=== PATIENT | female | born 1990 | race Caucasian/White ===

== ENCOUNTER 2018-04-20 08:02 | Inpatient (IN) ==
[2018-04-20] MEDS ORDERED: LACTATED RINGERS 1,000 ML IV ONE (08:54)
[2018-04-20] MEDS ORDERED: OXYTOCIN/LR 20 UNIT/1,000 ML BAG IV SCH (09:00)
[2018-04-20] MEDS ORDERED: LACTATED RINGERS 1,000 ML IV SCH (09:00)
[2018-04-20] MEDS ORDERED: BETAMETH SODIUM PHOS/ACETATE 30 MG/5 ML VIAL IM ONE (09:01)
[2018-04-20] MEDS ORDERED: CLINDAMYCIN INJ 900 MG in PREMIX 1 EACH IV SCH (09:30)
[2018-04-20 10:00] LABS: Basophils % 0.3 % (0.0-0.8); Eosinophils % 0.4 % (0.00-10.9); Hemoglobin 8.9 GM/DL (12.0-16.0); Immature Granulocytes % 0.5 %; Immature Granulocytes Absolute 0.04 #; Lymphocytes # 1.5 10*3/uL (1.4-4.0); Lymphocytes % 20.3 % (21.3-54.2); Mean Corpuscular HGB Conc 31.8 GM/DL (32-36); Mean Corpuscular Hemoglobin 24 PG (27-34); Mean Corpuscular Volume 74.7 FL (87-102); Mean Platelet Volume 10.5 FL (9.6-12.0); Monocytes # 0.4 10*3/uL (0.11-0.8); Neutrophils # 5.5 10*3/uL (1.4-7.4); Neutrophils % 73.5 % (38.7-73.9); Platelet Count 312 T/CUMM (130-400); Red Blood Count 3.75 MC/CUMM (3.8-5.5); Red Cell Distribution Width 15.1 % (9.3-17.3); White Blood Count 7.5 T/CUMM (4-12)
[2018-04-20] MEDS: ONDANSETRON 4 MG/2 ML VIAL IV PRN ×3 (11:31→22:45)
[2018-04-20] MEDS ORDERED: CITRIC ACID/SODIUM CITRATE 30 ML UDCUP PO ONE (12:13)
[2018-04-20] MEDS ORDERED: FAMOTIDINE 20 MG/2 ML VIAL IV ONE (12:13)
[2018-04-20] MEDS ORDERED: diphenhydrAMINE 50 MG/1 ML VIAL IV PRN ×2 (12:13)
[2018-04-20] MEDS ORDERED: ePHEDrine 50 MG/ML AMP IV PRN (12:13)
[2018-04-20] MEDS ORDERED: fentaNYL 2 MCG/ROPIV 0.2% EPID 150 ML EPIDURAL SCH (12:30)
[2018-04-20 14:48] LABS: Apearance,Urine CLEAR (Clear); Bilirubin,Urine Negative (Negative); Blood, Urine Negative (Negative); Glucose,Urine (UA) Negative (Negative); Ketones,Urine 20 mg/dL (Negative); Mucus,Urine Occasional /LPF (Occasional); Nitrite,Urine Negative (Negative); Protein,Urine Negative; RBC,Urine 4 /HPF (0-4); Urine Color Straw (Yellow); Urine Specific Gravity 1.006 (1.001-1.035); Urine Urobilinogen < 2.0 EU/DL (0.2-1.0); WBC,Urine 47 /HPF (0-6)
[2018-04-20] MEDS ORDERED: MEPERIDINE 50 MG/1 ML VIAL ONE (14:49)
[2018-04-20] MEDS ORDERED: LIDOCAINE 1% 50 ML VIAL ONE (14:49)
[2018-04-20] MEDS ORDERED: HYDROCORTISONE 2.5% RECTAL CREAM 30 GM TUBE TOP PRN (15:05)
[2018-04-20] MEDS ORDERED: WITCH HAZEL PADS 100/JAR TOP PRN (15:05)
[2018-04-20] MEDS ORDERED: ONDANSETRON 4 MG/2 ML VIAL IV PRN (15:05)
[2018-04-20] MEDS ORDERED: RHO(D) IMMUNE GLOBULIN 300 MCG SYRINGE IM ONE (15:05)
[2018-04-20] MEDS ORDERED: LANOLIN 50% CREAM 0.3 OZ TUBE TOP PRN (15:05)
[2018-04-20] MEDS ORDERED: BENZOCAINE 20%/MENTHOL 0.5% SPRAY 56 GM CAN TOP PRN (15:05)
[2018-04-20] MEDS ORDERED: DIPH/TET/ACEL PERT BOOSTER VACCINE 0.5 ML VIAL IM ONE (15:05)
[2018-04-20] MEDS ORDERED: BISACODYL 10 MG SUPP RECTAL PRN (15:05)
[2018-04-20] MEDS ORDERED: ACETAMINOPHEN 325 MG TABLET PO PRN (15:05)
[2018-04-20] MEDS ORDERED: OXYTOCIN/LR 20 UNIT/1,000 ML BAG IV ONE (15:05)
[2018-04-20] MEDS ORDERED: oxyCODONE/ACETAMINOPHEN 5-325 MG TABLET PO PRN (15:05)
[2018-04-20] MEDS ORDERED: MEASLES/MUMPS/RUBELLA VACCINE 0.5 ML VIAL SUBCUT ONE (15:05)
[2018-04-20] MEDS: IBUPROFEN 800 MG TABLET PO PRN (17:40)
[2018-04-20] MEDS: oxyCODONE/ACETAMINOPHEN 5-325 MG TABLET PO PRN (17:42)
[2018-04-20] MEDS ORDERED: CARISOPRODOL 350 MG TABLET PO PRN (18:05)
[2018-04-20] MEDS: DOCUSATE SODIUM 100 MG CAPSULE PO SCH (20:42)
[2018-04-20] MEDS ORDERED: NITROFURANTOIN MACRO/MONO 100 MG CAPSULE PO SCH (21:00)
[2018-04-21] MEDS: oxyCODONE/ACETAMINOPHEN 5-325 MG TABLET PO PRN ×4 (00:04→21:35)
[2018-04-21 05:06] LABS: Basophils % 0.1 % (0.0-0.8); Hematocrit 26.6 VOL% (35.7-47.0); Hemoglobin 8.1 GM/DL (12.0-16.0); Immature Granulocytes % 0.7 %; Immature Granulocytes Absolute 0.09 #; Lymphocytes # 1.5 10*3/uL (1.4-4.0); Mean Corpuscular HGB Conc 30.5 GM/DL (32-36); Mean Corpuscular Hemoglobin 23 PG (27-34); Mean Corpuscular Volume 76.4 FL (87-102); Mean Platelet Volume 11.2 FL (9.6-12.0); Monocytes % 7.8 % (1.7-12.7); Neutrophils # 10.7 10*3/uL (1.4-7.4); Neutrophils % 80.4 % (38.7-73.9); Platelet Count 317 T/CUMM (130-400); Red Blood Count 3.48 MC/CUMM (3.8-5.5); Red Cell Distribution Width 15.1 % (9.3-17.3); White Blood Count 13.3 T/CUMM (4-12)
[2018-04-21] MEDS: IBUPROFEN 800 MG TABLET PO PRN ×3 (07:31→21:34)
[2018-04-21] MEDS: ONDANSETRON 4 MG/2 ML VIAL IV PRN (08:40)
[2018-04-21] MEDS: DOCUSATE SODIUM 100 MG CAPSULE PO SCH ×2 (08:44→20:09)
[2018-04-21] MEDS: FERROUS SULFATE 325 MG TABLET PO SCH ×2 (08:48→20:09)
[2018-04-21] MEDS ORDERED: [UNRECOGNIZED DRUG - REMARK] PO SCH (09:00)
[2018-04-21] MEDS: GENTAMICIN INJ 120 MG in PREMIX 1 EACH IV SCH ×2 (15:28→23:00)
[2018-04-21] MEDS: ONDANSETRON 4 MG TABLET PO PRN (21:34)
[2018-04-22] MEDS: ONDANSETRON 4 MG TABLET PO PRN (03:51)
[2018-04-22] MEDS: IBUPROFEN 800 MG TABLET PO PRN (03:51)
[2018-04-22] MEDS: oxyCODONE/ACETAMINOPHEN 5-325 MG TABLET PO PRN ×2 (03:52→10:18)
[2018-04-22] MEDS: GENTAMICIN INJ 120 MG in PREMIX 1 EACH IV SCH (06:37)
[2018-04-22 07:34] VITALS: BP 93/52
[2018-04-22] MEDS: FERROUS SULFATE 325 MG TABLET PO SCH (08:54)
[2018-04-22] MEDS: DOCUSATE SODIUM 100 MG CAPSULE PO SCH (08:55)
== END 2018-04-22 12:05 | disposition home or self-care (01) | DRG 560 ==
LOC: N.LDOUT 08:02 → N.LD 08:04 → N.OB 17:00
PROVIDERS: ADMIT Specialist; ATTEND Specialist

== ENCOUNTER 2021-07-17 12:49 | Inpatient (IN) ==
[2021-07-17] MEDS ORDERED: ONDANSETRON 4 MG/2 ML VIAL IV STA (13:26)
[2021-07-17] MEDS ORDERED: SODIUM CHLORIDE 0.9% 1,000 ML IV STA (13:26)
[2021-07-17 14:00] LABS: Basophils % 0.3 % (0.0-0.8); Eosinophils % 0.5 % (0.00-10.9); Hematocrit 44.5 VOL% (35.7-47.0); Hemoglobin 14.7 GM/DL (12.0-16.0); Immature Granulocytes % 0.3 %; Immature Granulocytes Absolute 0.02 #; Lymphocytes # 0.6 10*3/uL (1.4-4.0); Lymphocytes % 8.5 % (21.3-54.2); Mean Corpuscular Volume 84.8 FL (87-102); Mean Platelet Volume 10.9 FL (9.6-12.0); Monocytes % 5.6 % (1.7-12.7); Neutrophils % 84.8 % (38.7-73.9); Platelet Count 219 T/CUMM (130-400); Red Blood Count 5.25 MC/CUMM (3.8-5.5); Red Cell Distribution Width 13.1 % (9.3-17.3); White Blood Count 7.5 T/CUMM (4-12)
[2021-07-17 14:37] LABS: Albumin 4.1 G/DL (3.4-5.0); Bilirubin,Total 5.1 MG/DL (0.20-1.00); Calcium 8.9 MG/DL (8.5-10.1); Potassium 3.4 MMOL/L (3.5-5.1)
[2021-07-17 15:16] LABS: Bilirubin,Urine Small mg/dL (Negative); Blood, Urine Negative (Negative); Glucose,Urine (UA) Negative (Negative); Ketones,Urine Negative (Negative); Mucus,Urine Occasional /LPF (Occasional); Nitrite,Urine Negative (Negative); Protein,Urine 100 MG/DL; RBC,Urine 1 /HPF (0-4); Squamous Epithelial Cell,Urine Occasional /HPF (0-10); Urine Appearance CLEAR (Clear); Urine Color Amber (Yellow); Urine Specific Gravity 1.027 (1.001-1.035)
[2021-07-17 15:27] LABS: Barbiturates Screen,Urine Negative (Negative); Benzodiazepines Screen,Urine Positive (Negative); Cannabinoid Screen,Urine Positive (Negative); Opiate Screen,Urine Negative (Negative); Phencyclidine Screen,Urine Negative (Negative)
[2021-07-17] MEDS ORDERED: hydrALAZINE 20 MG/1 ML VIAL IV PRN (17:38)
[2021-07-17] MEDS ORDERED: DEXTROSE 50% 25 GM/50 ML VIAL IV PRN (17:38)
[2021-07-17] MEDS ORDERED: BISACODYL 5 MG TABLET PO PRN (17:38)
[2021-07-17] MEDS ORDERED: GLUCAGON 1 MG VIAL IM PRN (17:38)
[2021-07-17] MEDS ORDERED: IBUPROFEN 600 MG TABLET PO PRN (17:41)
[2021-07-17 17:54] LABS: Hepatitis B Core IgM Quant 0.09 Index; Hepatitis B Surface Ag Quant < 0.10 Index; Hepatitis B Surface Ag Result Non-Reactive (NonReactive); Hepatitis C Virus Ab Quant 0.08 Index; Hepatitis C Virus Ab Result Non-Reactive (NonReactive)
[2021-07-17] MEDS ORDERED: tiZANidine 4 MG TABLET PO PRN (18:02)
[2021-07-17] MEDS ORDERED: POTASSIUM CHLORIDE 20 MEQ TABLET PO PRN (18:13)
[2021-07-17] MEDS: ONDANSETRON 4 MG/2 ML VIAL IV PRN ×2 (18:17→22:58)
[2021-07-17] MEDS: SODIUM CHLOR 0.9% KCL 20 MEQ 20 MEQ/1,000 ML BAG IV SCH (21:35)
[2021-07-17] MEDS: oxyCODONE IR 5 MG TABLET PO PRN (22:58)
[2021-07-18] MEDS: ONDANSETRON 4 MG/2 ML VIAL IV PRN ×2 (04:04→09:08)
[2021-07-18 05:52] LABS: Basophils % 0.5 % (0.0-0.8); Eosinophils # 0.3 10*3/uL (0.0-0.87); Eosinophils % 5.7 % (0.00-10.9); Hematocrit 39.5 VOL% (35.7-47.0); Immature Granulocytes % 0.2 %; Immature Granulocytes Absolute 0.01 #; Lymphocytes # 1.2 10*3/uL (1.4-4.0); Lymphocytes % 22.1 % (21.3-54.2); Mean Corpuscular HGB Conc 32.9 GM/DL (32-36); Mean Corpuscular Volume 86.6 FL (87-102); Mean Platelet Volume 10.9 FL (9.6-12.0); Monocytes % 6.1 % (1.7-12.7); Neutrophils % 65.4 % (38.7-73.9); Platelet Count 239 T/CUMM (130-400); Red Blood Count 4.56 MC/CUMM (3.8-5.5); Red Cell Distribution Width 13.4 % (9.3-17.3); White Blood Count 5.6 T/CUMM (4-12)
[2021-07-18] MEDS: SODIUM CHLOR 0.9% KCL 20 MEQ 20 MEQ/1,000 ML BAG IV SCH ×2 (05:53→17:29)
[2021-07-18 06:35] LABS: Albumin 3.3 G/DL (3.4-5.0); Bilirubin,Total 3.6 MG/DL (0.20-1.00); Calcium 8.2 MG/DL (8.5-10.1); Osmolality,Calculated 279.4 MOS/KG (273-304); Potassium 3.4 MMOL/L (3.5-5.1); Risk Ratio 6.58; Thyroid Stimulating Hormone 0.759 uIU/ml (0.358-3.74); Total Protein 6.1 G/DL (6.4-8.2); VLDL Cholesterol 23.4 MG/DL
[2021-07-18] MEDS ORDERED: PANTOPRAZOLE 40 MG TABLET PO SCH (09:00)
[2021-07-18] MEDS ORDERED: PROMETHAZINE 25 MG/1 ML VIAL IV PRN (10:01)
[2021-07-18] MEDS ORDERED: PROMETHAZINE INJ 12.5 MG in SODIUM CHLORIDE 0.9% 50 ML IV PRN ×2 (10:21→19:51)
[2021-07-18] MEDS ORDERED: PROMETHAZINE 25 MG/1 ML VIAL IM PRN (10:35)
[2021-07-18] MEDS: oxyCODONE IR 5 MG TABLET PO PRN ×2 (11:49→21:41)
[2021-07-18] MEDS: BISACODYL 5 MG TABLET PO SCH ×2 (17:29→21:41)
[2021-07-18] MEDS ORDERED: POLYETHYLENE GLYCOL POWDER 255 GM BOTTLE PO ONE (18:00)
[2021-07-18] MEDS ORDERED: MAGNESIUM CITRATE 300 ML BOTTLE PO ONE (21:00)
[2021-07-19] MEDS: SODIUM CHLOR 0.9% KCL 20 MEQ 20 MEQ/1,000 ML BAG IV SCH ×3 (02:12→19:58)
[2021-07-19] MEDS: BISACODYL 5 MG TABLET PO SCH ×3 (05:52→18:47)
[2021-07-19 06:47] LABS: Basophils % 0.6 % (0.0-0.8); Eosinophils # 0.4 10*3/uL (0.0-0.87); Eosinophils % 8.8 % (0.00-10.9); Hematocrit 35.8 VOL% (35.7-47.0); Hemoglobin 11.4 GM/DL (12.0-16.0); Immature Granulocytes % 0.2 %; Immature Granulocytes Absolute 0.01 #; Lymphocytes # 1.5 10*3/uL (1.4-4.0); Lymphocytes % 32.1 % (21.3-54.2); Mean Corpuscular HGB Conc 31.8 GM/DL (32-36); Mean Corpuscular Volume 89.7 FL (87-102); Mean Platelet Volume 10.5 FL (9.6-12.0); Neutrophils % 53.3 % (38.7-73.9); Platelet Count 233 T/CUMM (130-400); Red Blood Count 3.99 MC/CUMM (3.8-5.5); Red Cell Distribution Width 13.6 % (9.3-17.3); White Blood Count 4.8 T/CUMM (4-12)
[2021-07-19 07:18] LABS: Albumin 2.5 G/DL (3.4-5.0); Bilirubin,Direct 1.16 MG/DL (0.0-0.20); Bilirubin,Indirect 1.2 MG/DL (0.0-1.0); Bilirubin,Total 2.4 MG/DL (0.20-1.00); Total Protein 5.1 G/DL (6.4-8.2)
[2021-07-19 07:20] LABS: Albumin 2.6 G/DL (3.4-5.0); Bilirubin,Total 2.3 MG/DL (0.20-1.00); Osmolality,Calculated 278.3 MOS/KG (273-304); Total Protein 5.2 G/DL (6.4-8.2)
[2021-07-19] MEDS ORDERED: LACTATED RINGERS 1,000 ML IV SCH (07:30)
[2021-07-19] MEDS ORDERED: LIDOCAINE 2% 5 ML VIAL ONE (08:11)
[2021-07-19] MEDS ORDERED: propofoL 200 MG/20 ML VIAL IV ONE ×2 (08:11→08:32)
[2021-07-19] MEDS ORDERED: DEXAMETHASONE 4 MG/1 ML VIAL ONE (08:13)
[2021-07-19] MEDS ORDERED: ONDANSETRON 4 MG/2 ML VIAL ONE (08:13)
[2021-07-19] MEDS: PANTOPRAZOLE 40 MG VIAL IV SCH (09:13)
[2021-07-19] MEDS: MAGNESIUM CITRATE 300 ML BOTTLE PO SCH ×3 (09:14→21:00)
[2021-07-19] MEDS ORDERED: PROMETHAZINE INJ 12.5 MG in SODIUM CHLORIDE 0.9% 50 ML IV SCH (09:30)
[2021-07-19] MEDS: PROMETHAZINE INJ 25 MG in SODIUM CHLORIDE 0.9% 50 ML IV SCH ×4 (09:38→22:13)
[2021-07-19] MEDS: oxyCODONE IR 5 MG TABLET PO PRN (15:49)
[2021-07-20] MEDS: BISACODYL 5 MG TABLET PO SCH (00:40)
[2021-07-20] MEDS: oxyCODONE IR 5 MG TABLET PO PRN (02:56)
[2021-07-20] MEDS: SODIUM CHLOR 0.9% KCL 20 MEQ 20 MEQ/1,000 ML BAG IV SCH ×3 (04:21→10:00)
[2021-07-20 05:23] LABS: Basophils % 0.1 % (0.0-0.8); Hematocrit 34.5 VOL% (35.7-47.0); Hemoglobin 11.3 GM/DL (12.0-16.0); Immature Granulocytes % 0.6 %; Immature Granulocytes Absolute 0.04 #; Lymphocytes # 0.5 10*3/uL (1.4-4.0); Lymphocytes % 7.1 % (21.3-54.2); Mean Corpuscular HGB Conc 32.8 GM/DL (32-36); Mean Corpuscular Volume 87.1 FL (87-102); Mean Platelet Volume 10.1 FL (9.6-12.0); Monocytes % 4.1 % (1.7-12.7); Neutrophils % 88.1 % (38.7-73.9); Platelet Count 258 T/CUMM (130-400); Red Blood Count 3.96 MC/CUMM (3.8-5.5); Red Cell Distribution Width 13.5 % (9.3-17.3); White Blood Count 6.9 T/CUMM (4-12)
[2021-07-20 05:54] LABS: Albumin 3.1 G/DL (3.4-5.0); Bilirubin,Total 1.4 MG/DL (0.20-1.00); Calcium 8.6 MG/DL (8.5-10.1); Osmolality,Calculated 283.8 MOS/KG (273-304); Potassium 4.4 MMOL/L (3.5-5.1); Total Protein 6.2 G/DL (6.4-8.2)
[2021-07-20] MEDS ORDERED: LIDOCAINE 2% 5 ML VIAL ONE (07:37)
[2021-07-20] MEDS ORDERED: propofoL 200 MG/20 ML VIAL IV ONE (07:37)
[2021-07-20] MEDS ORDERED: MIDAZOLAM 2 MG/2 ML VIAL ONE (07:37)
[2021-07-20] MEDS ORDERED: DEXAMETHASONE 4 MG/1 ML VIAL ONE (07:37)
[2021-07-20] MEDS ORDERED: ONDANSETRON 4 MG/2 ML VIAL ONE (07:37)
[2021-07-20] MEDS ORDERED: fentaNYL 100 MCG/2 ML VIAL ONE (08:05)
[2021-07-20] MEDS: PANTOPRAZOLE 40 MG VIAL IV SCH (12:13)
[2021-07-20 12:43] VITALS: BP 119/87
[2021-07-20 14:37] LABS: Alpha-1-Antitrypsin, Serum 158 mg/dL (100 - 190)
[2021-07-21 11:41] LABS: Antinuclear Ab, S 0.4 U
== END 2021-07-20 13:27 | disposition home or self-care (01) ==
LOC: N.ED 12:49 → SUATTDRO 17:38 → N.EDINP 17:38 → N.3E 18:32
PROVIDERS: ADMIT Internal Medicine; ATTEND Internal Medicine